=== PATIENT | male | born 1985 ===

== ENCOUNTER → 2018-05-04 21:17 | Outpatient (REF) | payer SELFPAY ==
[2018-05-04 22:10] LABS: Add Manual Diff / Slide Review NO; Basophils Absolute Auto 0 /uL (0-100); Basophils Percent Auto 0.3 % (0-2); Eosinophils Absolute Auto 200 /uL (0-450); Eosinophils Percent Auto 3.7 % (2-4); Hematocrit 46.8 % (41-53); Hemoglobin 15.6 g/dL (13.5-17.5); Lymphocytes Absolute Auto 1700 /uL (1100-4500); Lymphocytes Percent Auto 26.1 % (25-40); Mean Corpuscular HGB Conc 33.2 % (30-36); Mean Corpuscular Hemoglobin 29.4 PG (26-34); Mean Corpuscular Volume 88.4 fL (80-100); Monocytes Absolute Auto 600 /uL (0-900); Monocytes Percent Auto 8.9 % (3-14); Neutrophils Absolute Auto 4000 /uL (1500-7000); Platelet Count 271 X10^3/uL (150-400); Red Cell Distribution Width 12.9 % (11.6-14.8); White Blood Cell Count 6.6 X10^3/uL (4.5-11.0)
[2018-05-06 14:25] LABS: PSA Total 0.14 ng/mL (< 4.01)
[2018-05-06 19:50] LABS: Estradiol 34 pg/mL (< 40)
[2018-05-09 13:41] LABS: Testosterone, Total 238.5; Testosterone,Free 8.6
== END ==
LOC: LAB 21:17
PROVIDERS: Visit Provider Naturopath
DX: E29.1 Testicular hypofunction (principal); F90.0 Attention-deficit hyperactivity disorder, predominantly inattentive type
CPT/HCPCS: 36415; 82670; 84153; 84154; 84402; 84403; 85025